=== PATIENT | male | born 1995 | race Caucasian/White ===

== ENCOUNTER 2018-01-01 21:20 | Emergency (ER) | payer OTHER, MEDICAID ==
--- NOTE | 2018-01-01 21:47 | EDM.PDOC ---
ED HPI GENERAL MEDICAL PROBLEM - General Chief Complaint: Neurological Problem Stated Complaint: MED VIA [facility] Time Seen by Provider: 01/01/18 21:30 Source of Information: Reports: Patient, EMS, Family History Limitations: Reports: Other (no old records) - History of Present Illness INITIAL COMMENTS - FREE TEXT/NARRATIVE: 22 yo male s/p severe head injury requiring multiple surgeries has been given prophylactic Vimpat for seizures. Family is up here on vacation and due to insurance issues has been without this medication for about 4 days. Kamlesh had a witnessed roughly 3 minute duration generalized seizure after which he was post-ictal. Here now for eval via EMS. Onset: Today Onset Date: 01/01/18 Onset Time: 21:00 Duration: Minutes: (3), Resolved Prior to Arrival Location: Reports: Generalized Quality: Reports: Other (no pain) Severity: Moderate Improves with: Reports: Other (time) Worsens with: Reports: Other (not getting his seizure med) Context: Reports: Other (was felt to be high risk for seizure, no hx of seizure) Associated Symptoms: Reports: No Other Symptoms Treatments COTTON GINNER: Reports: Other (see below) (none) - Related Data Allergies Allergy/AdvReac Type Severity Reaction Status Date / Time No Known Allergies Allergy Verified 01/01/18 21:32 Home Meds: Home Meds Cetirizine [ZyrTEC] 10 mg PO DAILY 01/01/18 [History] Gabapentin [Neurontin] 300 mg PO TID 01/01/18 [History] Lacosamide [Vimpat] 2 tab PO BID 01/01/18 [History] Multivitamin [Multi-Vitamin Daily] 1 tab PO DAILY 01/01/18 [History] QUEtiapine [SEROquel] 150 mg PO BEDTIME 01/01/18 [History] Sertraline HCl [Zoloft] 50 mg PO DAILY 01/01/18 [History] levETIRAcetam [Keppra] 750 mg PO BID #90 tab 01/01/18 [Rx] ED ROS GENERAL - Review of Systems Review Of Systems: See Below Constitutional: Reports: No Symptoms HEENT: Reports: No Symptoms Respiratory: Reports: No Symptoms Cardiovascular: Reports: No Symptoms Endocrine: Reports: No Symptoms GI/Abdominal: Reports: No Symptoms : Reports: No Symptoms Musculoskeletal: Reports: No Symptoms Skin: Reports: No Symptoms Neurological: Reports: Seizure Psychiatric: Reports: No Symptoms - Physical Exam Exam: See Below Exam Limited By: No Limitations General Appearance: WD/WN, No Apparent Distress, Other (initially somnolent, and mildly confused. This past fairly quickly.) Eye Exam: Bilateral Eye: EOMI, Normal Inspection, PERRL Ears: Normal External Exam, Normal Canal, Hearing Grossly Normal, Normal TMs Nose: Normal Inspection, Normal Mucosa, No Blood Throat/Mouth: Normal Inspection, Normal Lips, Normal Teeth, Normal Oropharynx, Normal Voice, Other (small abrasions to the corners of his tongue) Head Exam: Atraumatic, Normocephalic Neck: Normal Inspection, Supple Respiratory/Chest: No Respiratory Distress, Lungs Clear, Normal Breath Sounds, No Accessory Muscle Use Cardiovascular: Regular Rate, Rhythm, No Edema GI/Abdominal: Normal Bowel Sounds, Soft, Non-Tender, No Distention Neuro Exam (Abbreviated): Alert, Oriented, CN II-XII Intact, Normal Cognition, No Motor/Sensory Deficits Back Exam: Normal Inspection Extremities: Normal Inspection, Normal Range of Motion, Non-Tender Psychiatric: Normal Affect, Normal Mood Skin Exam: Warm, Dry, Intact, Normal Color, No Rash Course - Vital Signs Text/Narrative:: [place] [facility] Advises substitution of Keppra and dosing guidelines given. Last Recorded V/S: Last Vital Signs Temp 36.2 C 01/01/18 21:37 Pulse 94 01/01/18 21:52 Resp 16 01/01/18 21:52 BP 118/58 L 01/01/18 21:52 Pulse Ox 92 L 01/01/18 21:52 - Orders/Labs/Meds Meds: Medications Discontinued Medications Generic Name Dose Route Start Last Admin Trade Name Freq PRN Reason Stop Dose Admin Levetiracetam 2,000 mg/ Sodium 120 mls @ 400 mls/hr 01/01/18 21:58 01/01/18 22:40 Chloride IV 01/01/18 22:12 400 mls/hr ONETIME ONE Administration Lidocaine HCl 0.1 ml 01/01/18 22:18 01/01/18 22:44 Xylocaine-Mpf 1% INJECT 01/01/18 22:19 0.1 ml ONETIME ONE Administration Departure - Departure Time of Disposition: 23:05 Disposition: Home, Self-Care 01 Condition: Fair Clinical Impression: Seizure - Discharge Information Prescriptions: levETIRAcetam [Keppra] 750 mg PO BID #90 tab Instructions: Seizure, Adult, [id number] Referrals: PCP,None [Primary Care Provider] - Forms: ED Department Discharge Additional Instructions: Take Keppra 750 mg every 12 hrs. Recheck with your neurologist when you get home. Follow seizure precautions to reduce the risk of injury.
[2018-01-01] MEDS ORDERED: levETIRAcetam 2,000 MG in Sodium Chloride 0.9% 100 ML IV ONE (21:58)
== END 2018-01-02 00:16 | disposition home or self-care (01) ==
LOC: JP.ED 21:20
DX: R56.9 Unspecified convulsions (principal); Z79.899 Other long term (current) drug therapy
CPT/HCPCS: 96365; 99284; J1953; J7030